=== PATIENT | female | born 1935 | race African-American/Black ===

== ENCOUNTER 2016-10-29 21:57 | Emergency (ER) | payer MEDICARE, OTHER ==
[~2016-10-29 21:57] MED LIST: BENZ1TAB PO; DIOV160T60 PO; IBUP800T23 PO; LORA0.5T PO; MEMA10 PO; SERO200T2 PO; ZYPR15TA PO
[2016-10-29 21:59] VITALS: BP 149/80; PULSE 111; RESP 14; TEMP 98; O2SAT 97
[2016-10-29] MEDS ORDERED: DONE1TAB90 PO (23:53)
[2016-10-29] MEDS ORDERED: IBUP800T23 PO (23:53)
[2016-10-29] MEDS ORDERED: SIMV20TA PO (23:53)
[2016-10-29] MEDS ORDERED: LORA-392 PO (23:53)
[2016-10-29] MEDS ORDERED: OLAN15TA PO (23:53)
[2016-10-29] MEDS ORDERED: AMLO10TA2 PO (23:53)
[2016-10-29] MEDS ORDERED: QUET1TAB11 PO (23:53)
[2016-10-29] MEDS ORDERED: MULT-135 PO ×2 (23:53)
[2016-10-29] MEDS ORDERED: TRAZ50TA12 PO (23:53)
[2016-10-29] MEDS ORDERED: LORA-373 PO (23:53)
[2016-10-29] MEDS ORDERED: SERT25TA83 PO (23:53)
[2016-10-30] MEDS ORDERED: ACETAMINOPHEN 500 MG CPLT PO ONE (00:45)
[2016-10-30 01:08] LABS: AUTOMATED NEUTROPHIL # 4.3 TH/MM3 (1.8-7.7); BASOPHIL % 0.5 % (0.0-2.0); EOSINOPHIL # 0.2 TH/MM3 (0-0.4); EOSINOPHIL % 2.8 % (0.0-4.0); HEMATOCRIT 39.2 % (35.0-46.0); HEMO FLAGS DIFF FINAL; LYMPH % 13.7 % (9.0-44.0); LYMPHOCYTE # 0.8 TH/MM3 (1.0-4.8); MEAN CELL VOLUME 84.3 FL (80.0-100.0); MEAN CORPUSCULAR HEMOGLOBIN 28.9 PG (27.0-34.0); MEAN CORPUSCULAR HGB CONC 34.2 % (32.0-36.0); MONO % 13.1 % (0.0-8.0); NEUT % 69.9 % (16.0-70.0); PLATELET COUNT 208 TH/MM3 (150-450); RED BLOOD COUNT 4.65 MIL/MM3 (4.00-5.30); RED CELL DISTRIBUTION WIDTH 14.1 % (11.6-17.2); WHITE BLOOD COUNT 6.2 TH/MM3 (4.0-11.0)
--- NOTE | 2016-10-30 01:10 | RADRPT ---
EXAM DATE/TIME: 10/30/2016 00:42 [facility] COMPARISON: No previous studies available for comparison. INDICATIONS : Left sided chest pain after fall. MEDICAL HISTORY : None. SURGICAL HISTORY : None. ENCOUNTER: Initial ACUITY: 1 day PAIN SCORE: 7/10 LOCATION: Left chest FINDINGS: No infiltrate, effusion or pneumothorax demonstrated. Visualized osseous structures are grossly intac t. Mild cardiomegaly is noted. CONCLUSION: 1. No acute abnormality demonstrated. 2. Mild compensated cardiomegaly. Thomas Esposito MD on October 30, 2016 at 1:07 Board Certified Radiologist. This report was verified electronically.
--- NOTE | 2016-10-30 01:11 | RADRPT ---
EXAM DATE/TIME: 10/30/2016 00:43 [facility] COMPARISON: No previous studies available for comparison. INDICATIONS : Fall. Left shoulder pain. MEDICAL HISTORY : None. SURGICAL HISTORY : None. ENCOUNTER: Initial ACUITY: 1 day PAIN SCORE: 6/10 LOCATION: Left scapular FINDINGS: No fracture or subluxation demonstrated. Moderate to severe osteoarthritis seen of both the acromiocl avicular and glenohumeral joints. Renographic appearance of the left shoulder soft tissues within nor mal limits. CONCLUSION: No fracture or subluxation of the left shoulder. Moderate to severe osteoarthritis. Thomas Esposito MD on October 30, 2016 at 1:09 Board Certified Radiologist. This report was verified electronically.
[2016-10-30 01:15] LABS: APTT (PATIENT) 35.3 SEC (24.3-30.1); PROTHROMBIN TIME - PATIENT 11.5 SEC (9.8-11.6)
[2016-10-30 01:26] LABS: ANION GAP 8 MEQ/L (5-15); BLOOD UREA NITROGEN 16 MG/DL (7-18); CHLORIDE 107 MEQ/L (98-107); GLOMERULAR FILTRATION RATE 76 ML/MIN (>89); MAGNESIUM 2.6 MG/DL (1.5-2.5); SODIUM (NA) 141 MEQ/L (136-145)
[2016-10-30 01:28] LABS: CREATINE KINASE 238 U/L (26-192)
[2016-10-30 01:49] LABS: CKMB 3.1 NG/ML (0.5-3.6)
--- NOTE | 2016-10-30 02:32 | PD ---
HPI Chief Complaint: Fall Time Seen by Provider: 00:20 Travel History International Travel<30 days: No Contact w/Intl Traveler<30days: No Traveled to known affect area: No History of Present Illness HPI 81yo F with PMH of dementia and depression presents to the ED with c/o left shoulder pain that radiates to left chest wall after trip and fall today. Pt has pain with movement. Denies any head trauma, LOC, sob, n/v, abdominal pain, focal weakness or numbness. PFSH Past Medical History Arthritis: Yes Asthma: No Autoimmune Disease: No Blood Disorders: No Anxiety: No Depression: Yes Heart Rhythm Problems: No Cancer: No Cardiovascular Problems: No High Cholesterol: Yes Chemotherapy: No Chest Pain: No Congestive Heart Failure: No COPD: No Cerebrovascular Accident: No Dementia: Yes Diabetes: No Diminished Hearing: No Endocrine: No GERD: No Genitourinary: No Headaches: No Hiatal Hernia: No Hypertension: Yes Immune Disorder: No Kidney Stones: No Neurologic: No Psychiatric: Yes (Paranois Schizophrenia, Dementia) Reproductive: No Respiratory: No Migraines: No Radiation Therapy: No Renal Failure: No Seizures: No Sickle Cell Disease: No Sleep Apnea: No Thyroid Disease: No Ulcer: No Menopausal: Yes : 1 Para: 1 Past Surgical History Abdominal Surgery: Yes (Laprocopic Left Hemicolectomy 02/09) AICD: No Arteriovenous Shunt: No Cardiac Surgery: No Ear Surgery: No Endocrine Surgery: No Eye Surgery: No Genitourinary Surgery: No Gynecologic Surgery: Yes (Total Abdominal Hysterectomy) Hysterectomy: Yes Insulin Pump: No Joint Replacement: No Oral Surgery: No Pacemaker: No Thoracic Surgery: No Other Surgery: Yes Social History Alcohol Use: No Tobacco Use: No Substance Use: No Allergies-Medications (Allergen,Severity, Reaction): Coded Allergies: Cephalosporins (Verified Allergy, Severe, 10/29/16) Flour (Verified Allergy, Severe, 10/29/16) Keflex (Verified Allergy, Severe, 10/29/16) Reported Meds & Prescriptions Reported Meds & Active Scripts Active Reported Olanzapine 15 Mg Tab 30 Mg PO HS Quetiapine (Quetiapine Fumarate) 400 Mg Tab 400 Mg PO HS Ibuprofen 800 Mg Tab 800 Mg PO BID PRN Amlodipine (Amlodipine Besylate) 10 Mg Tab 10 Mg PO DAILY Multi Vitamin (Multiple Vitamin) 1 Tab Tab 1 Tab PO Q WEEK Multi Vitamin (Multiple Vitamin) 1 Tab Tab 1 Tab PO DAILY Donepezil Hydrochloride 5 Mg Tab 10 Mg PO DAILY Trazodone (Trazodone HCl) 50 Mg Tab 50 Mg PO HS Sertraline (Sertraline HCl) 25 Mg Tab 25 Mg PO DAILY Ativan (Lorazepam) 0.5 Mg Tab 0.5 Mg PO BID PRN Lorazepam 0.5 Mg Tab 0.5 Mg PO DAILY PRN Simvastatin 20 Mg Tab 20 Mg PO QHS Review of Systems Except as stated in HPI: all other systems reviewed are Neg Physical Exam Narrative GENERAL: 81yo F in mild distress. SKIN: Focused skin assessment warm/dry. HEAD: Atraumatic. Normocephalic. EYES: Pupils equal and round. No scleral icterus. No injection or drainage. ENT: No nasal bleeding or discharge. Mucous membranes pink and moist. NECK: Trachea midline. No JVD. CARDIOVASCULAR: Regular rate and rhythm. No murmur appreciated. CHEST WALL: +TTP left chest. No ecchymoses or erythema or rash. RESPIRATORY: No accessory muscle use. Clear to auscultation. Breath sounds equal bilaterally. GASTROINTESTINAL: Abdomen soft, non-tender, nondistended. Hepatic and splenic margins not palpable. MUSCULOSKELETAL: Left shoulder: No focal ttp. Decreased ROM left shoulder. Distal pulses intact. Sensation intact. NEUROLOGICAL: Awake and alert. No obvious cranial nerve deficits. Motor grossly within normal limits. Normal speech. AAOx2. PSYCHIATRIC: Appropriate mood and affect; insight and judgment normal. Data Data Last Documented VS Vital Signs Date Time Temp Pulse Resp B/P Pulse Ox O2 Delivery O2 Flow Rate FiO2 10/30/16 02:39 78 18 98 10/29/16 23:44 Room Air 10/29/16 21:59 98.0 149/80 Orders Electrocardiogram (10/30/16 00:28) Basic Metabolic Panel (Bmp) (10/30/16 00:28) Ckmb (Isoenzyme) Profile (10/30/16 00:28) Complete Blood Count With Diff (10/30/16 00:28) Magnesium (Mg) (10/30/16 00:28) Prothrombin Time / Inr (Pt) (10/30/16 00:28) Act Partial Throm Time (Ptt) (10/30/16 00:28) Troponin I (10/30/16 00:28) Chest, Single Ap (10/30/16 00:28) Ecg Monitoring (10/30/16 00:28) Bilateral Bp Monitoring (10/30/16 00:28) Iv Access Insert/Monitor (10/30/16 00:28) Shoulder, Limited(2vws) (10/30/16 ) Acetaminophen (Tylenol) (10/30/16 00:45) CKMB (10/30/16 00:05) CKMB% (10/30/16 00:05) Labs Laboratory Tests Test 10/30/16 00:05 White Blood Count 6.2 TH/MM3 Red Blood Count 4.65 MIL/MM3 Hemoglobin 13.4 GM/DL Hematocrit 39.2 % Mean Corpuscular Volume 84.3 FL Mean Corpuscular Hemoglobin 28.9 PG Mean Corpuscular Hemoglobin 34.2 % Concent Red Cell Distribution Width 14.1 % Platelet Count 208 TH/MM3 Mean Platelet Volume 7.6 FL Neutrophils (%) (Auto) 69.9 % Lymphocytes (%) (Auto) 13.7 % Monocytes (%) (Auto) 13.1 % Eosinophils (%) (Auto) 2.8 % Basophils (%) (Auto) 0.5 % Neutrophils # (Auto) 4.3 TH/MM3 Lymphocytes # (Auto) 0.8 TH/MM3 Monocytes # (Auto) 0.8 TH/MM3 Eosinophils # (Auto) 0.2 TH/MM3 Basophils # (Auto) 0.0 TH/MM3 CBC Comment DIFF FINAL Differential Comment Prothrombin Time 11.5 SEC Prothromb Time International 1.0 RATIO Ratio Activated Partial 35.3 SEC Thromboplast Time Sodium Level 141 MEQ/L Potassium Level MEQ/L Chloride Level 107 MEQ/L Carbon Dioxide Level 26.0 MEQ/L Anion Gap 8 MEQ/L Blood Urea Nitrogen 16 MG/DL Creatinine 0.87 MG/DL Estimat Glomerular Filtration 76 ML/MIN Rate Random Glucose 107 MG/DL Calcium Level 9.3 MG/DL Magnesium Level 2.6 MG/DL Total Creatine Kinase 238 U/L Creatine Kinase MB 3.1 NG/ML Creatine Kinase MB % 1.3 % Troponin I LESS THAN 0.02 NG/ML MDM Medical Decision Making Medical Screen Exam Complete: Yes Emergency Medical Condition: Yes Interpretation(s) EKG: NSR 83bpm. normal axis. No ST segment elevation or depression. Laboratory Tests Test 10/30/16 00:05 White Blood Count 6.2 TH/MM3 (4.0-11.0) Red Blood Count 4.65 MIL/MM3 (4.00-5.30) Hemoglobin 13.4 GM/DL (11.6-15.3) Hematocrit 39.2 % (35.0-46.0) Mean Corpuscular Volume 84.3 FL (80.0-100.0) Mean Corpuscular Hemoglobin 28.9 PG (27.0-34.0) Mean Corpuscular Hemoglobin 34.2 % Concent (32.0-36.0) Red Cell Distribution Width 14.1 % (11.6-17.2) Platelet Count 208 TH/MM3 (150-450) Mean Platelet Volume 7.6 FL (7.0-11.0) Neutrophils (%) (Auto) 69.9 % (16.0-70.0) Lymphocytes (%) (Auto) 13.7 % (9.0-44.0) Monocytes (%) (Auto) 13.1 % (0.0-8.0) Eosinophils (%) (Auto) 2.8 % (0.0-4.0) Basophils (%) (Auto) 0.5 % (0.0-2.0) Neutrophils # (Auto) 4.3 TH/MM3 (1.8-7.7) Lymphocytes # (Auto) 0.8 TH/MM3 (1.0-4.8) Monocytes # (Auto) 0.8 TH/MM3 (0-0.9) Eosinophils # (Auto) 0.2 TH/MM3 (0-0.4) Basophils # (Auto) 0.0 TH/MM3 (0-0.2) CBC Comment DIFF FINAL Differential Comment Prothrombin Time 11.5 SEC (9.8-11.6) Prothromb Time International 1.0 RATIO Ratio Activated Partial 35.3 SEC Thromboplast Time (24.3-30.1) Sodium Level 141 MEQ/L (136-145) Potassium Level MEQ/L (3.5-5.1) Chloride Level 107 MEQ/L (98-107) Carbon Dioxide Level 26.0 MEQ/L (21.0-32.0) Anion Gap 8 MEQ/L (5-15) Blood Urea Nitrogen 16 MG/DL (7-18) Creatinine 0.87 MG/DL (0.50-1.00) Estimat Glomerular Filtration 76 ML/MIN (>89) Rate Random Glucose 107 MG/DL (74-106) Calcium Level 9.3 MG/DL (8.5-10.1) Magnesium Level 2.6 MG/DL (1.5-2.5) Total Creatine Kinase 238 U/L (26-192) Creatine Kinase MB 3.1 NG/ML (0.5-3.6) Creatine Kinase MB % 1.3 % (0.0-4.0) Troponin I LESS THAN 0.02 NG/ML (0.02-0.05) Last Impressions Chest X-Ray 10/30/16 0028 Signed Impressions: Service Date/Time: Sunday, October 30, 2016 00:42 - CONCLUSION: 1. No acute abnormality demonstrated. 2. Mild compensated cardiomegaly. Thomas Esposito MD Shoulder X-Ray 10/30/16 0000 Signed Impressions: Service Date/Time: Sunday, October 30, 2016 00:43 - CONCLUSION: No fracture or subluxation of the left shoulder. Moderate to severe osteoarthritis. Thomas Esposito MD Differential Diagnosis Musculoskeletal pain vs. Fracture vs. dislocation Narrative Course 81yo F with left shoulder and chest wall pain s/p trip and fall today. Denies any head trauma. Labs reviewed, no leukocytosis. Troponin negative. CXR negative. Mild compensated cardiomegaly. Xray left shoulder showed no fracture or subluxation. Osteoarthritis. Pt given acetaminophen. Repeat HR 78bpm. Pt reevaluated at bedside and pain has improved. Pt denies any more chest pain. I do not believe this was cardiac. Pt is well appearing and wants to go home. Return precautions given. Diagnosis Primary Impression: Fall Qualified Code: W19.XXXA - Fall, initial encounter Patient Instructions: General Instructions Departure Forms: Tests/Procedures Additional Instructions: Please follow up with your PMD in 3-7 days. Return to the ED if symptoms worsen. Med/Other Pt SpecificInfo: Prescription(s) given Scripts Acetaminophen 325 Mg Lro212 Mg PO Q4-6H PRN (PAIN SCALE 1 TO 4) #20 TAB Ref 0 Prov:MavisMary Lou DO 10/30/16 Disposition: 01 DISCHARGE HOME Condition: Stable Mary Lou Gamble DO Oct 30, 2016 02:32
[2016-10-30 02:39] VITALS: PULSE 78; RESP 18; O2SAT 98
[2016-10-30] MEDS ORDERED: ACET325T PO (02:52)
--- NOTE | 2016-10-30 19:07 | EKG ---
Date Performed: 10/30/2016 Time Performed: 00:42:17 PTAGE: 81 years EKG: Sinus rhythm POSSIBLE LEFT ATRIAL ENLARGEMENT LOW QRS VOLTAGE IN PRECORDIAL LEADS BORDERLINE ECG PREVIOUS TRACING : 05/07/2004 14.42 Compared to prior tracing no significant change DOCTOR: Domenica Hawkins Interpretating Date/Time 10/30/2016 19:06:24
== END 2016-10-30 04:43 | disposition home or self-care (01) ==
LOC: NEPC 21:57
DX: M25.512 Pain in left shoulder (principal); I51.7 Cardiomegaly; E78.00 Pure hypercholesterolemia, unspecified; F32.9 Major depressive disorder, single episode, unspecified; M19.90 Unspecified osteoarthritis, unspecified site; W01.0XXA Fall on same level from slipping, tripping and stumbling without subsequent striking against object, initial encounter; I10 Essential (primary) hypertension
CPT/HCPCS: 71010; 73030; 80048; 82550; 82552; 83735; 84484; 85025; 85610; 85730; 93005

== ENCOUNTER → 2017-01-07 | Outpatient (CLI) | payer MEDICARE, OTHER ==
[~2017-01-07] MED LIST changes: +ACET325T PO; +AMLO10TA2 PO; -BENZ1TAB PO; -DIOV160T60 PO; +DONE1TAB90 PO; +LORA-373 PO; +LORA-392 PO; -LORA0.5T PO; -MEMA10 PO; +MULT-135 PO; +OLAN15TA PO; +QUET1TAB11 PO; -SERO200T2 PO; +SERT25TA83 PO; +SIMV20TA PO; +TRAZ50TA12 PO; -ZYPR15TA PO
[2017-01-07 08:33] LABS: AUTOMATED NEUTROPHIL # 2.9 TH/MM3 (1.8-7.7); BASOPHIL # 0.1 TH/MM3 (0-0.2); BASOPHIL % 1.3 % (0.0-2.0); EOSINOPHIL # 0.1 TH/MM3 (0-0.4); HEMATOCRIT 39.6 % (35.0-46.0); HEMO FLAGS DIFF FINAL; LYMPH % 20.9 % (9.0-44.0); LYMPHOCYTE # 0.9 TH/MM3 (1.0-4.8); MEAN CORPUSCULAR HEMOGLOBIN 27.7 PG (27.0-34.0); MEAN CORPUSCULAR HGB CONC 32.6 % (32.0-36.0); MONO % 9.4 % (0.0-8.0); NEUT % 65.4 % (16.0-70.0); PLATELET COUNT 233 TH/MM3 (150-450); RED BLOOD COUNT 4.66 MIL/MM3 (4.00-5.30); RED CELL DISTRIBUTION WIDTH 14.4 % (11.6-17.2); WHITE BLOOD COUNT 4.5 TH/MM3 (4.0-11.0)
[2017-01-07 09:00] LABS: ALT (GPT) 26 U/L (10-53); ANION GAP 8 MEQ/L (5-15); AST (GOT) 21 U/L (15-37); BICARBONATE 24.8 MEQ/L (21.0-32.0); BLOOD UREA NITROGEN 18 MG/DL (7-18); CHLORIDE 108 MEQ/L (98-107); GLOMERULAR FILTRATION RATE 64 ML/MIN (>89); GLUCOSE,FASTING 108 MG/DL (74-99); POTASSIUM 3.8 MEQ/L (3.5-5.1); SODIUM (NA) 141 MEQ/L (136-145)
[2017-01-07 09:10] LABS: ALKALINE PHOSPHATASE 105 U/L (45-117); HDL CHOLESTEROL 113.6 MG/DL (40.0-60.0); LDL CHOLESTEROL 78 MG/DL (0-99); TOTAL BILIRUBIN ADULT 0.5 MG/DL (0.2-1.0)
[2017-01-07 15:28] LABS: HEMOGLOBIN A1b 1.8 %; HEMOGLOBIN Ao 84.6 %; HEMOGLOBIN P3 4.1 %
== END ==
LOC: CLAB 07:45
DX: E78.5 Hyperlipidemia, unspecified (principal); E03.9 Hypothyroidism, unspecified; D64.9 Anemia, unspecified; E11.9 Type 2 diabetes mellitus without complications; E55.9 Vitamin D deficiency, unspecified; Z13.228 Encounter for screening for other metabolic disorders
CPT/HCPCS: 36415; 80053; 80061; 82306; 83036; 84443; 85025

== ENCOUNTER → 2017-12-02 | Outpatient (CLI) | payer MEDICARE, OTHER ==
[~2017-12-02] MED LIST changes: -DONE1TAB90 PO; +DONE5TAB8 PO; +IBUP1TAB7 PO; -IBUP800T23 PO; -LORA-373 PO; +LORA0.5T PO; -QUET1TAB11 PO; +QUET400T PO
[2017-12-02 12:20] LABS: HEMATOCRIT 39.1 % (35.0-46.0); HEMOGLOBIN 13.3 GM/DL (11.6-15.3); MEAN CELL VOLUME 85.8 FL (80.0-100.0); MEAN CORPUSCULAR HEMOGLOBIN 29.2 PG (27.0-34.0); MEAN CORPUSCULAR HGB CONC 34.1 % (32.0-36.0); MEAN PLATELET VOLUME 7.5 FL (7.0-11.0); PLATELET COUNT 238 TH/MM3 (150-450); RED BLOOD COUNT 4.55 MIL/MM3 (4.00-5.30); RED CELL DISTRIBUTION WIDTH 13.9 % (11.6-17.2); WHITE BLOOD COUNT 3.7 TH/MM3 (4.0-11.0)
[2017-12-02 12:49] LABS: ALT (GPT) 30 U/L (10-53); CHOLESTEROL 200 MG/DL (120-200); TRIGLYCERIDES 50 MG/DL (42-150)
[2017-12-02 12:59] LABS: ALKALINE PHOSPHATASE 90 U/L (45-117); CHOLESTEROL/ HDL RATIO 1.96 RATIO; HDL CHOLESTEROL 101.7 MG/DL (40.0-60.0); LDL CHOLESTEROL 88 MG/DL (0-99); TOTAL BILIRUBIN ADULT 0.4 MG/DL (0.2-1.0); TOTAL PROTEIN 7.2 GM/DL (6.4-8.2)
[2017-12-02 13:06] LABS: ALBUMIN 3.7 GM/DL (3.4-5.0); AST (GOT) 42 U/L (15-37); BICARBONATE 23.8 MEQ/L (21.0-32.0); BLOOD UREA NITROGEN 12 MG/DL (7-18); CALCIUM 9.4 MG/DL (8.5-10.1); CHLORIDE 110 MEQ/L (98-107); CREATININE 0.95 MG/DL (0.50-1.00); GLOMERULAR FILTRATION RATE 68 ML/MIN (>89); GLUCOSE,FASTING 124 MG/DL (74-99); SODIUM (NA) 143 MEQ/L (136-145)
== END ==
LOC: CLAB 11:30
DX: E03.9 Hypothyroidism, unspecified (principal); E11.9 Type 2 diabetes mellitus without complications; D64.9 Anemia, unspecified; E78.5 Hyperlipidemia, unspecified
CPT/HCPCS: 36415; 80053; 80061; 83036; 84443; 85027